=== PATIENT | male | born 1980 | race Caucasian/White ===

== ENCOUNTER 2017-12-28 16:54 | Emergency (ER) | payer OTHER ==
[2017-12-28 17:20] VITALS: BP 96/60
[2017-12-28] MEDS ORDERED: Benzoin Compound STICK TOPICAL ONE (18:41)
--- NOTE | 2017-12-28 18:44 | UC ---
Laceration HPI - HPI Summary HPI Summary: cut himself yesterday on the right forearm, seen mental health today who wanted him to get wound re-checked - History Of Current Complaint Chief Complaint: UCLaceration Stated Complaint: ARM LAC Time Seen by Provider: 12/28/17 17:53 Pain Intensity: 4 Pain Scale Used: 0-10 Numeric Aggravating Factors: Nothing - Allergies/Home Medications Allergies/Adverse Reactions: Allergies Allergy/AdvReac Type Severity Reaction Status Date / Time No Known Allergies Allergy Verified 12/28/17 17:20 Home Medications: Home Medications NK [No Home Medications Reported] 12/28/17 [History Confirmed 12/28/17] PMH/Surg Hx/FS Hx/Imm Hx Previously Healthy: Yes - Surgical History Surgical History: None - Family History Known Family History: Positive: None - Social History Occupation: Employed Full-time Lives: With Family Alcohol Use: Occasionally Substance Use Type: None Smoking Status (MU): Heavy Every Day Tobacco Smoker - Immunization History Most Recent Tetanus Shot: unknown Review of Systems Constitutional: Negative Skin: Other - superficial self inflicted laceration to rfa Eyes: Negative ENT: Negative Respiratory: Negative Cardiovascular: Negative Gastrointestinal: Negative Genitourinary: Negative Motor: Negative Neurovascular: Negative Musculoskeletal: Negative Neurological: Negative Psychological: Negative Is Patient Immunocompromised?: No All Other Systems Reviewed And Are Negative: Yes Physical Exam Triage Information Reviewed: Yes Appearance: Well-Appearing, No Pain Distress, Well-Nourished Vital Signs: Initial Vital Signs Temp 97.3 F 12/28/17 17:15 Pulse 81 12/28/17 17:15 Resp 18 12/28/17 17:15 BP 96/60 12/28/17 17:15 Pulse Ox 100 12/28/17 17:15 Vital Signs Reviewed: Yes Eye Exam: Normal Eyes: Positive: Conjunctiva Clear ENT Exam: Normal ENT: Positive: Normal ENT inspection, Hearing grossly normal. Negative: Trismus , Muffled voice, Hoarse voice Dental Exam: Normal Neck exam: Normal Neck: Positive: Supple, Nontender Respiratory Exam: Normal Respiratory: Positive: Chest non-tender, No respiratory distress, No accessory muscle use Cardiovascular Exam: Normal Cardiovascular: Positive: RRR, Pulses Normal, Brisk Capillary Refill Musculoskeletal Exam: Normal Musculoskeletal: Positive: Strength Intact, ROM Intact, No Edema Neurological Exam: Normal Neurological: Positive: Alert, Muscle Tone Normal Psychological Exam: Normal Skin Exam: Normal, Other Skin: Positive: Other Laceration Repair - Laceration Repair 1 Description: Linear Laceration Size After Repair: Length (cm) - 2, Width (mm) - 11 Modified For Repair: No Cleansing Completed Via Routine Prep: Yes Closure Material: SteriStrips Laceration Course/Dx - Course/Dx Course Of Treatment: continue with mental health clinic, follow with pcp, to ed/ or per your plan with your mental health provider for desire to self injury - Differential Dx - Laceration/Wound Provider Diagnoses: self injuring behavior, steri strip right forearm repair, nicotine dependent Discharge - Sign-Out/Discharge Documenting (check all that apply): Patient Departure - Discharge Plan Condition: Stable Disposition: HOME Patient Education Materials: Steristrips (ED), Nonsuicidal Self-Injury (ED) Referrals: [facility] [Outside] - If Needed [facility] [Outside] - If Needed - Billing Disposition and Condition Condition: STABLE Disposition: Home
== END 2017-12-28 18:55 | disposition home or self-care (01) ==
LOC: UCEAST 16:54
DX: S51.811A Laceration without foreign body of right forearm, initial encounter (principal); X78.9XXA Intentional self-harm by unspecified sharp object, initial encounter; Y93.9 Activity, unspecified; Y92.9 Unspecified place or not applicable; F17.200 Nicotine dependence, unspecified, uncomplicated
CPT/HCPCS: 99202; G0463

== ENCOUNTER 2019-04-18 17:35 | Emergency (ER) | payer OTHER ==
--- OUTSIDE RECORDS SUMMARY | 2019-04-18 17:41 | XMS REPORT | Continuity of Care Document ---
:1980 External Reference #:[id number] Author Name Bentley Yeager M.D. (transmitted by agent of provider Olive Patton) Address [address], [place] [address] Care Team Providers Name Role Phone Patient's Choice Care Team Information Sales Utility Representative Unavailable Problems Active Problems Provider Date Multiple sclerosis Eric Aj M.D. Onset: 05/24/2018 Tobacco user Eric Aj M.D. Onset: 05/24/2018 Viral hepatitis C Eric Aj M.D. Onset: 05/24/2018 Social History Type Date Description Comments Sex Unknown Tobacco Use Start: Unknown Current Cigarette Smoker 1 Pack Daily Cigarette Use Pack Years - 20 Smoking Status Reviewed: 02/22/19 Current Cigarette Smoker 1 Pack Daily ETOH Use Denies alcohol use Tobacco Use Start: Unknown Heavy tobacco smoker (more than 10 cigarettes/day) Recreational Drug Use Formerly used Amphetamines regularly Exercise Type/Frequency Walks sporadically Allergies, Adverse Reactions, Alerts Description No Known Drug Allergies Medications Active Medications SIG Qnty Indications Ordering Provider Date Gilenya take one capsule 30caps G35 Bentley Yeager, 12/15/2018 0.5mg Capsules (0.5 mg) by M.D. mouth each day. may take with or without food. store at room temperature. Escitalopram Oxalate Take 1 1 2 Unknown 10mg Tablets By Mouth Tablets Daily Ibuprofen 3 by mouth as Unknown 200mg Tablets needed Immunizations Description No Information Available Vital Signs Date Vital Result Comment 02/22/2019 3:18pm Height 67 inches 5'7" Weight 194.00 lb Heart Rate 64 /min BP Systolic 132 mmHg BP Diastolic 78 mmHg BMI (Body Mass Index) 30.4 kg/m2 01/17/2019 8:36am Height 67 inches 5'7" Weight 190.00 lb Heart Rate 72 /min BP Systolic Sitting 122 mmHg BP Diastolic Sitting 80 mmHg Respiratory Rate 18 /min BMI (Body Mass Index) 29.8 kg/m2 Results Test Date Facility Test Result H/L Range Note CBC Auto 12/15/2018 [facility] White Blood 8.7 10^3/uL Normal 3.5-10.[address] [place] [address] [phone] Red Blood Count 4.63 10^6/uL Normal 4.18-5.48 Hemoglobin 14.2 g/dL Normal 14.0-18.0 Hematocrit 42 % Normal 42-52 Mean Corpuscular Volume 90 fL Normal 80-94 Mean Corpuscular Hemoglobin 31 pg Normal 27-31 Mean Corpuscular HGB Conc 34 g/dL Normal 31-36 Red Cell Distribution Width 14 % Normal 10-15 Platelet Count 250 10^3/uL Normal 150-450 Mean Platelet Volume 9.6 fL Normal 7.4-10.4 Abs Neutrophils 4.0 10^3/uL Normal 1.5-7.7 Abs Lymphocytes 3.7 10^3/uL Normal 1.0-4.8 Abs Monocytes 0.7 10^3/uL Normal 0-0.8 Abs Eosinophils 0.2 10^3/uL Normal 0-0.6 Abs Basophils 0.1 10^3/uL Normal 0-0.2 Abs Nucleated RBC 0.0 10^3/uL Granulocyte % 46.7 % Lymphocyte % 42.4 % Monocyte % 7.7 % Eosinophil % 2.1 % Basophil % 1.1 % Nucleated Red Blood Cells % 0.2 Comp Metabolic 12/15/2018 [facility] Sodium 138 mmol/L Normal 135-[address] [place] [address] [phone] Potassium 3.9 mmol/L Normal 3.5-5.0 Chloride 105 mmol/L Normal 101-111 Co2 Carbon Dioxide 26 mmol/L Normal 22-32 Anion Gap 7 mmol/L Normal 2-11 Glucose 95 mg/dL Normal 70-100 Blood Urea Nitrogen 8 mg/dL Normal 6-24 Creatinine 0.81 mg/dL Normal 0.67-1.17 BUN/Creatinine Ratio 9.9 Normal 8-20 Calcium 9.7 mg/dL Normal 8.6-10.3 Total Protein 7.0 g/dL Normal 6.4-8.9 Albumin 4.4 g/dL Normal 3.2-5.2 Globulin 2.6 g/dL Normal 2-4 Albumin/Globulin Ratio 1.7 Normal 1-3 Total Bilirubin 0.40 mg/dL Normal 0.2-1.0 Alkaline Phosphatase 60 U/L Normal 34-104 Alt 11 U/L Normal 7-52 Ast 11 U/L Low 13-39 Egfr Non- 106.6 >60 Egfr 129.0 >60 2 Varicella Zoster 12/15/2018 [facility] Varicella-Zoster IgG Positive 3 Igg AB [address] [place] [address] [phone] Varicella IgG Antibody Index 1.2 4 Stratify JCV 12/15/2018 [facility] JCV Antibody - Negative [address] [place] [address] [phone] Laboratory test 11/30/2018 [facility] Blood Urea 9 mg/dL Normal 6-[address] [place] [address] [phone] Creatinine 11/30/2018 [facility] Creatinine 0.81 mg/dL Normal 0.67- [address] 1.17 [place] [address] [phone] Egfr Non- 106.6 >60 Egfr 129.0 >60 6 1 SENT TO [facility] [employer] 2 Because ethnic data is not always readily available, this report includes an eGFR for both -Americans and non- Americans. The National Kidney Disease Education Program (NKDEP) does not endorse the use of the MDRD equation for patients that are not between the ages of 18 and 70, are , have extremes of body size, muscle mass, or nutritional status, or are non- or non-. According to the National Kidney Foundation, irrespective of diagnosis, the stage of the disease is based on the level of kidney function: Stage Description GFR(mL/min/1.73 m(2)) 1 Kidney damage with normal or decreased GFR 90 2 Kidney damage with mild decrease in GFR 60-89 3 Moderate decrease in GFR 30-59 4 Severe decrease in GFR 15-29 5 Kidney failure <15 (or dialysis) 3 Results suggest response to immunization or prior exposure to the virus. REFERENCE VALUE Vaccinated: Positive (>=1.1 AI) Unvaccinated: Negative (<=0.8 AI) 4 Test Performed by: [facility] [address] [place] [address] 5 TEST PROCEDURE TEST RESULTS OUT OF RANGE REFERENCE RANGE STRATIFY JCV(TM) AB WITH INDEX W/REFLEX TO INHIBITION INDEX VALUE 0.20 H JCV Antibody Indeterminate Index interpretice criteria: <0.20 negative 0.20-0.40 indeterminate >0.40 positive INTERPRETATION: Negative: Antibodies to JCV not detected. Indeterminate:Low level reactivity detected, see Inhibition Assay result to follow for the final antibody result. Positive: Antibodies to JOHN virus (JCV) detected indicating the patient has been exposed to JCV at an undetermined time. The STRATIFY JCV Antibody Test is an enzyme-linked immunoabsorbent assay (LELIA) designed to detect JCV antibodies to help identify individuals who have been exposed to the virus. Samples with low level reactivity in the detection assay are retested in a confirmation (inhibition) assay to confirm presence or absence of JCV-specific antibodies. STRATIFY JCV(TM) AB INHIBITION ASSAY JCV AB BY INHIBITION FINAL RESULT: NEGATIVE INTERPRETATION Positive: Antibodies to JOHN virus (JCV) detected indicating the patient has been exposed to JCV at an undetermined time. Negative: Antibodies to JCV not detected Test performed at: [facility] [address] [facility] [place] [address] Director: MD RAQUEL Ocasio [id number] 6 Because ethnic data is not always readily available, this report includes an eGFR for both -Americans and non- Americans. The National Kidney Disease Education Program (NKDEP) does not endorse the use of the MDRD equation for patients that are not between the ages of 18 and 70, are , have extremes of body size, muscle mass, or nutritional status, or are non- or non-. According to the National Kidney Foundation, irrespective of diagnosis, the stage of the disease is based on the level of kidney function: Stage Description GFR(mL/min/1.73 m(2)) 1 Kidney damage with normal or decreased GFR 90 2 Kidney damage with mild decrease in GFR 60-89 3 Moderate decrease in GFR 30-59 4 Severe decrease in GFR 15-29 5 Kidney failure <15 (or dialysis) Procedures Date Code Description Status 01/02/2019 74045 EKG, Interpretation Only Completed 01/02/2019 47948 EKG Tracing & Interpretation Completed Medical Devices Description No Information Available Encounters Type Date Location Provider Dx Diagnosis Office Visit 01/17/2019 [facility] Bentley Gonzalez Multiple 8:45a Services Of Rodolfo Yeager M.D. sclerosis Office Visit 12/15/2018 [facility] Bentley Guerra 2:45p Ariana Yeager sclerosis Office Visit 11/30/2018 [facility] Bentley Gonzalez Multiple 10:30a [facility] Ariana Yeager sclerosis Assessments Date Code Description Provider 02/22/2019 [facility] Multiple sclerosis Bentley Yeager M.D. 01/17/2019 [facility] Multiple sclerosis Bentley Yeager M.D. 01/02/2019 [facility] Multiple sclerosis Eleanor Cooper M.D. 01/02/2019 [facility] Multiple sclerosis Bentley Yeager M.D. 12/15/2018 [facility] Multiple sclerosis Bentley Yeager M.D. 11/30/2018 [facility] Multiple sclerosis Bentley Yeager M.D. Plan of Treatment Future Appointment(s):06/21/2019 3:30 pm - Bentley Yeager M.D. at [facility]04/25/2019 3:45 pm - Bentley Yeager M.D. at [place] [facility]02/22/2019 - Bentley Yeager M.D.G35 Multiple sclerosisNew Xrays:MRI Brain W/Wo, Ordered: 02/22/19MRI Cervical Spine W/Wo, Ordered: 02/22/19Follow up:june after MRI's MRI's in June Functional Status Description No Information Available Mental Status Description No Information Available Referrals Refer to Dr Reason for Referral Status Appt Date Robin Slade MD EKG Created [address] [place], [place] [id number] [phone] Patrick Flores MD Opthalmology referral for macular edema prior to Sent starting Gilenya [address] [place] [address] [phone]
[2019-04-18 18:43] VITALS: BP 114/70
--- NOTE | 2019-04-18 19:20 | UC ---
Throat Pain/Nasal Reynold HPI - HPI Summary HPI Summary: 38 year old male with PMH for MS presents with sinus pressure, congestion, frontal headache, non-productive cough, feeling tired x 1 week. Symptoms getting worse. no fever, chills, no GI complaints, no ear pain. No recent ABX. 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 + tob use - History of Current Complaint Chief Complaint: UCRespiratory Stated Complaint: COLD, CONGESTION Time Seen by Provider: 04/18/19 19:03 Hx Obtained From: Patient Onset/Duration: Sudden Onset, Lasting Days Severity: Moderate Pain Intensity: 4 Pain Scale Used: 0-10 Numeric Cough: Nonproductive Associated Signs & Symptoms: Positive: Sinus Discomfort, Nasal Discharge. Negative: Dysphagia, FB Sensation, Fever, Vomiting, Rash Related History: Smoking - Allergies/Home Medications Allergies/Adverse Reactions: Allergies Allergy/AdvReac Type Severity Reaction Status Date / Time No Known Allergies Allergy Verified 04/18/19 18:43 Home Medications: Home Medications Fingolimod (NF) [Gilenya] 0.5 mg PO DAILY 04/18/19 [History Confirmed 04/18/19] guaiFENesin LIQ* [Robitussin*] 5 ml PO Q6HR 04/18/19 [History Confirmed 04/18/19 ] PMH/Surg Hx/FS Hx/Imm Hx Previously Healthy: No - MS - Surgical History Surgical History: None Surgery Procedure, Year, and Place: DENIES - Family History Known Family History: Positive: None, Non-Contributory - Social History Occupation: Works From/At Home Alcohol Use: None Substance Use Type: None Smoking Status (MU): Heavy Every Day Tobacco Smoker Amount Used/How Often: 1 ppd - Immunization History Most Recent Tetanus Shot: unknown Review of Systems All Other Systems Reviewed And Are Negative: Yes Constitutional: Positive: Fatigue. Negative: Fever, Chills ENT: Positive: Sore Throat, Nasal Discharge, Sinus Congestion, Sinus Pain/ Tenderness. Negative: Dental Pain, Ear Ache Respiratory: Positive: Cough. Negative: Shortness Of Breath Cardiovascular: Negative: Palpitations, Chest Pain Gastrointestinal: Positive: Negative Genitourinary: Positive: Negative Neurological: Positive: Headache Psychological: Positive: Negative Is Patient Immunocompromised?: No Physical Exam Triage Information Reviewed: Yes Appearance: Well-Appearing, No Pain Distress, Well-Nourished Vital Signs: Initial Vital Signs Temp 98.3 F 04/18/19 18:39 Pulse 58 04/18/19 18:39 Resp 16 04/18/19 18:39 BP 114/70 04/18/19 18:39 Pulse Ox 98 04/18/19 18:39 Vital Signs Reviewed: Yes Eyes: Positive: Conjunctiva Clear ENT: Positive: Pharynx normal, TMs normal - uanble to see due to cerumen impaction b/l. AFter irrigation, TM WNLs, Sinus tenderness - minimal right max , Uvula midline. Negative: Pharyngeal erythema, Nasal congestion, Nasal drainage, Tonsillar swelling, Tonsillar exudate Neck: Positive: Supple, Nontender, No Lymphadenopathy. Negative: Nuchal Rigidity, Enlarged Nodes @ Respiratory: Positive: Chest non-tender, Lungs clear, Normal breath sounds, No respiratory distress, No accessory muscle use. Negative: Respiratory distress, Crackles, Rhonchi, Stridor, Wheezing Cardiovascular: Positive: RRR, No Murmur Neurological: Positive: Alert Psychological: Positive: Normal Response To Family Skin: Positive: Rashes Throat Pain/Nasal Course/Dx - Course Course Of Treatment: SInusitis: - Increase fluid intake - Humidifer at night to keep mucous membranes moist, help with coughing - Cough medications as needed for symptoms - Tylenol/ MOtrin as needed for pain, body aches - Increase hygiene to help with symptoms. - Antibiotics as directed - GO to ER with fever > 102, increased pain, difficulty breathing, shortness of breath. - Differential Dx/Diagnosis Differential Diagnosis/HQI/PQRI: Laryngitis, Pharyngitis, Sinusitis Provider Diagnosis: Sinusitis Discharge ED - Sign-Out/Discharge Documenting (check all that apply): Patient Departure All imaging exams completed and their final reports reviewed: No Studies - Discharge Plan Condition: Good Disposition: HOME Prescriptions: Amoxicillin/Clavulanate TAB* [Augmentin TAB 875*] 875 mg PO BID #14 tab Benzonatate CAP* [Tessalon 100 MG CAP*] 100 mg PO TID PRN #30 cap PRN Reason: Cough Patient Education Materials: Sinusitis (ED) Referrals: No Primary Care Phys,NOPCP [Primary Care Provider] - [facility] [Outside] Additional Instructions: - Increase fluid intake - Humidifer at night to keep mucous membranes moist, help with coughing - Cough medications as needed for symptoms - Tylenol/ MOtrin as needed for pain, body aches - Increase hygiene to help with symptoms. - Antibiotics as directed - GO to ER with fever > 102, increased pain, difficulty breathing, shortness of breath. - Billing Disposition and Condition Condition: GOOD Disposition: Home
== END 2019-04-18 19:50 | disposition home or self-care (01) ==
LOC: UCEAST 17:35
DX: J32.9 Chronic sinusitis, unspecified (principal); J02.9 Acute pharyngitis, unspecified; R09.81 Nasal congestion; F17.210 Nicotine dependence, cigarettes, uncomplicated
CPT/HCPCS: 99213; G0463

== ENCOUNTER 2019-07-31 07:56 | Emergency (ER) | payer OTHER ==
[2019-07-31 08:10] VITALS: BP 129/79
[2019-07-31 08:31] LABS: Influenza A Molecular Negative (Negative); Influenza B Molecular Negative (Negative)
--- NOTE | 2019-07-31 08:31 | UC ---
FLU HPI - HPI Summary HPI Summary: ONSET YESTERDAY OF SUBJECTIVE FEVER, BODY ACHES, WATERY STOOLS, COUGH AND CONGESTION. NO NAUSEA/VOMITING. - History of Current Complaint Stated Complaint: DIARRHEA,FLU LIKE SYMPTOMS Time Seen by Provider: 07/31/19 08:03 Hx Obtained From: Patient Onset/Duration: Gradual Onset, Lasting Days - 1 DAY, Still Present Severity Currently: Moderate Severity Initially: Moderate Pain Intensity: 4 Pain Scale Used: 0-10 Numeric Associated Signs & Symptoms: Positive: Fever, Myalgia, Cough, Nasal Congestion - Allergy/Home Medications Allergies/Adverse Reactions: Allergies Allergy/AdvReac Type Severity Reaction Status Date / Time No Known Allergies Allergy Verified 07/31/19 08:10 Home Medications: Home Medications Acetaminophen [Mapap] 1,500 mg PO ONCE PRN 07/31/19 [History Confirmed 07/31/19] modafiniL [Modafinil] 1 tab PO DAILY 07/31/19 [History Confirmed 07/31/19] PMH/Surg Hx/FS Hx/Imm Hx - Additional Past Medical History Additional PMH: MS Other History Of: Hepatitis C - Surgical History Surgical History: None Surgery Procedure, Year, and Place: DENIES - Family History Known Family History: Positive: None, Non-Contributory - Social History Alcohol Use: None Substance Use Type: None Smoking Status (MU): Heavy Every Day Tobacco Smoker Amount Used/How Often: 1 ppd Household Exposure Type: Cigarettes - Immunization History Most Recent Tetanus Shot: unknown Review of Systems All Other Systems Reviewed And Are Negative: Yes Constitutional: Positive: Fever, Fatigue ENT: Positive: Nasal Discharge Respiratory: Positive: Cough Cardiovascular: Positive: Negative Gastrointestinal: Positive: Diarrhea Musculoskeletal: Positive: Myalgia Physical Exam Triage Information Reviewed: Yes Appearance: Well-Appearing, No Pain Distress, Well-Nourished Vital Signs: Initial Vital Signs Temp 98.2 F 07/31/19 08:05 Pulse 78 07/31/19 08:05 Resp 18 07/31/19 08:05 BP 129/79 07/31/19 08:05 Pulse Ox 96 07/31/19 08:05 Laboratory Tests 07/31/19 08:19 Influenza A (Rapid) Negative Influenza B (Rapid) Negative Vital Signs Reviewed: Yes Eyes: Positive: Conjunctiva Clear ENT: Positive: Hearing grossly normal, Pharynx normal, TMs normal Neck: Positive: Supple, Nontender, No Lymphadenopathy Respiratory Exam: Normal Cardiovascular Exam: Normal Abdomen Description: Positive: Soft Musculoskeletal: Positive: No Edema Neurological: Positive: Alert Psychological: Positive: Age Appropriate Behavior Skin: Negative: Rashes Flu Course/Dx - Course Course Of Treatment: FLU SWAB NEGATIVE. PATIENT WITH LIKELY VIRALLY MEDIATED SYMPTOMS THAT SHOULD RESOLVE ON THEIR OWN WITH TIME. REST, HYDRATE, OTC MEDS NEEDED. FOLLOW-UP IF NOT IMPROVING OVER THE NEXT 1-2 WEEKS. REQUESTING NOTE TO BE EXCUSED FROM COURT [employer]. - Differential Dx/Diagnosis Provider Diagnosis: Acute viral syndrome Discharge ED - Sign-Out/Discharge Documenting (check all that apply): Patient Departure All imaging exams completed and their final reports reviewed: No Studies - Discharge Plan Condition: Stable Disposition: HOME Patient Education Materials: Viral Syndrome (ED) Forms: *Gen. Provider Communication Referrals: [facility] [Outside] - If Needed Additional Instructions: FLU NEGATIVE. YOUR SYMPTOMS ARE LIKELY VIRALLY MEDIATED AND SHOULD RESOLVE ON THEIR OWN WITH TIME. NO INDICATION FOR ANTIBIOTICS AT PRESENT. REST, HYDRATE, OTC MEDS NEEDED. SEEK FOLLOW-UP IF YOU ARE NOT IMPROVING OVER THE NEXT 1-2 WEEKS. - Billing Disposition and Condition Condition: STABLE Disposition: Home
== END 2019-07-31 08:47 | disposition home or self-care (01) ==
LOC: UCEAST 07:56
DX: B34.9 Viral infection, unspecified (principal); M79.10 Myalgia, unspecified site; F17.210 Nicotine dependence, cigarettes, uncomplicated; R19.7 Diarrhea, unspecified; R53.83 Other fatigue; R09.82 Postnasal drip; R05 Cough; R09.81 Nasal congestion
CPT/HCPCS: 99211; G0463